=== PATIENT | female | born 1990 | race American Indian/Alaskan Native ===

== ENCOUNTER 2018-05-06 07:58 | Emergency (ER) | payer MEDICAID ==
--- NOTE | 2018-05-06 08:33 | EDM.PDOC ---
ED HPI GENERAL MEDICAL PROBLEM - General Chief Complaint: Genitourinary Problem Stated Complaint: RT SIDE AND STOMACH PAIN Time Seen by Provider: 05/06/18 08:16 Source of Information: Reports: Patient History Limitations: Reports: No Limitations - History of Present Illness INITIAL COMMENTS - FREE TEXT/NARRATIVE: 27 y.o.w.f with a h/o right Ovarian Cyst and vaginal bleed for 4 weeks came to the ed due to pain at her RLQ of her abdomen. No trauma. Pt was temporarily on Prmarin, which helped to regulate her Menstrual Period.No Dysuria, pain rated a 6/10. No N/V/D, pt denied . No other acute medical issues. BP 112/60 Pulse 85 RR 17 Pulse ox 98% on RA Temp 36.7 Onset: Gradual Onset Date: 04/10/18 Onset Time: 08:00 Duration: Day(s):, Intermittent Location: Reports: Abdomen Quality: Reports: Ache, Dull, Pressure, Same as Previous Episode Severity: Moderate Improves with: Reports: Rest Worsens with: Reports: Movement Context: Reports: Other (ovarian cyst) Associated Symptoms: Reports: Other (menstiual period for 4 weeks) Treatments WATER ANALYST: Reports: Acetaminophen Right Lower Abdomen Pain Score (Numeric/FACES): 8 - Related Data Allergies Allergy/AdvReac Type Severity Reaction Status Date / Time No Known Allergies Allergy Verified 12/03/16 15:14 Home Meds: Home Meds Acetaminophen [Tylenol] 650 mg PO Q4H PRN 05/06/18 [History] Acetaminophen/HYDROcodone [Blandon 325-5 MG] 1 tab PO Q4H PRN #6 tab 05/06/18 [Rx] Past Medical History - Past Health History Medical/Surgical History: Denies Medical/Surgical History HEENT History: Reports: Impaired Vision Gastrointestinal History: Reports: Cholelithiasis 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: , Other (See Below) Other OB/BYN History: ovarian cyst - Infectious Disease History Infectious Disease History: Reports: Chicken Pox - Past Surgical History GI Surgical History: Reports: Cholecystectomy Social & Family History - Family History Family Medical History: Noncontributory OBGYN: Reports: Endocrine/Metabolic: Reports: Diabetes, type II - Tobacco Use Smoking Status *Q: Never Smoker - Caffeine Use Caffeine Use: Reports: Soda - Recreational Drug Use Recreational Drug Use: No ED ROS GENERAL - Review of Systems Review Of Systems: See Below Constitutional: Reports: No Symptoms HEENT: Reports: No Symptoms Respiratory: Reports: No Symptoms Cardiovascular: Reports: No Symptoms Endocrine: Reports: No Symptoms GI/Abdominal: Reports: Abdominal Pain (RLQ of abdomen) : Reports: No Symptoms Musculoskeletal: Reports: No Symptoms Skin: Reports: No Symptoms Neurological: Reports: No Symptoms Psychiatric: Reports: No Symptoms Hematologic/Lymphatic: Reports: No Symptoms Immunologic: Reports: No Symptoms ED EXAM, GI/ABD - Physical Exam Exam: See Below Exam Limited By: No Limitations General Appearance: Alert, WD/WN, Mild Distress, Obese Eyes: Bilateral: Normal Appearance Ears: Normal External Exam Nose: Normal Inspection, Normal Mucosa Throat/Mouth: Normal Inspection, Normal Lips, Normal Gums, Normal Voice, No Airway Compromise Head: Atraumatic, Normocephalic Neck: Normal Inspection, Supple, Non-Tender Respiratory/Chest: No Respiratory Distress, Lungs Clear, Normal Breath Sounds, No Accessory Muscle Use, Chest Non-Tender Cardiovascular: Normal Peripheral Pulses, Regular Rate, Rhythm, No Edema, No Gallop, No JVD, No Murmur, No Rub GI/Abdominal Exam: Tender (RLQ of abdomen) (Female) Exam: Deferred Rectal (Female) Exam: Deferred Back Exam: Normal Inspection, Full Range of Motion Extremities: Normal Inspection, Normal Range of Motion, Non-Tender, No Pedal Edema, Normal Capillary Refill Neurological: Alert, Oriented, CN II-XII Intact, Normal Cognition, Normal Gait, No Motor/Sensory Deficits Psychiatric: Normal Affect, Normal Mood Skin Exam: Warm, Dry, Intact, Normal Color, No Rash Lymphatic: No Adenopathy Course - Vital Signs Text/Narrative:: 27 y.o.w.f with a h/o right Ovarian Cyst and vaginal bleed for 4 weeks came to the ed due to pain at her RLQ of her abdomen. No trauma. Pt was temporarily on Prmarin, which helped to regulate her Menstrual Period.No Dysuria, pain rated a 6/10. No N/V/D, pt denied . No other acute medical issues. BP 112/60 Pulse 85 RR 17 Pulse ox 98% on RA Temp 36.7 Labs: UA neg collected through a catheter, HCG Neg H/H 9.5/29.1 WBC nl MCV 79.4 , BMP was nl Ca was 8.5 however. Imaging: US of pelvis: several small ovarian cysts Impression: Right Ovarian Cysts, Menorrhagia, microcytic anemia Tx: Toradol i.m Reexam: Improved Consultation: Dr. Thomas, Pt's PMD: F/U with him in his clinic, no meds to be given now. Plan: D/C with instructions Last Recorded V/S: Last Vital Signs Temp 36.8 C 05/06/18 12:17 Pulse 75 05/06/18 12:50 Resp 16 05/06/18 12:17 BP 106/56 L 05/06/18 12:50 Pulse Ox 100 05/06/18 12:17 - Orders/Labs/Meds Orders: Active Orders 24 hr Category Date Time Status HCG QUALITATIVE,URINE [URCHEM] Stat Lab 05/06/18 08:35 Ordered UA W/MICROSCOPIC [URIN] Stat Lab 05/06/18 08:35 Ordered UA W/MICROSCOPIC [URIN] Stat Lab 05/06/18 09:45 Ordered Labs: Laboratory Tests 05/06/18 05/06/18 05/06/18 Range/Units 08:35 08:35 08:50 WBC 9.4 (4.5-12.0) X10-3/uL RBC 3.67 (3.23-5.20) x10(6)uL Hgb 9.5 L (11.5-15.5) g/dL Hct 29.1 L (30.0-51.3) % MCV 79.4 L (80-96) fL MCH 26.0 L (27.7-33.6) pg MCHC 32.7 (32.2-35.4) g/dL RDW 15.6 H (11.5-15.5) % Plt Count 311 (125-369) X10(3)uL MPV 8.9 (7.4-10.4) fL Neut % (Auto) 78.0 (46-82) % Lymph % (Auto) 14.0 (13-37) % [place] % (Auto) 4.3 (4-12) % Eos % (Auto) 1 (1.0-5.0) % Baso % (Auto) 3 H (0-2) % Neut # (Auto) 7.4 (1.6-8.3) # Lymph # (Auto) 1.3 (0.6-5.0) # [place] # (Auto) 0.4 (0.0-1.3) # Eos # (Auto) 0.1 (0.0-0.8) # Baso # (Auto) 0.2 (0.0-0.2) # Sodium (135-145) mmol/L Potassium (3.5-5.3) mmol/L Chloride (100-110) mmol/L Carbon Dioxide (21-32) mmol/L BUN (7-18) mg/dL Creatinine (0.55-1.02) mg/dL Est Cr Clr Drug Dosing mL/min Estimated GFR (MDRD) (>60) BUN/Creatinine Ratio (9-20) Glucose (80-116) mg/dL Calcium (8.6-10.2) mg/dL Urine Color Yellow (YELLOW) Urine Appearance Slightly cloudy (CLEAR) Urine pH 5.0 (5.0-6.5) Ur Specific University 1.020 (1.010-1.025) Urine Protein Trace (NEGATIVE) mg/dL Urine Glucose (UA) Normal (NEGATIVE) mg/dL Urine Ketones Negative (NEGATIVE) mg/dL Urine Occult Blood Large H (NEGATIVE) Urine Nitrite Negative (NEGATIVE) Urine Bilirubin Small H (NEGATIVE) Urine Urobilinogen 1 H (NEGATIVE) mg/dL Ur Leukocyte Esterase Negative (NEGATIVE) Urine RBC >100 H (0) Urine WBC 0-5 (0) Ur Squamous Epith Cells Few H (NS,R,O) Urine Bacteria Moderate H (NS) Urine HCG, Qual Negative (NEGATIVE) 05/06/18 05/06/18 Range/Units 08:50 09:45 WBC (4.5-12.0) X10-3/uL RBC (3.23-5.20) x10(6)uL Hgb (11.5-15.5) g/dL Hct (30.0-51.3) % MCV (80-96) fL MCH (27.7-33.6) pg MCHC (32.2-35.4) g/dL RDW (11.5-15.5) % Plt Count (125-369) X10(3)uL MPV (7.4-10.4) fL Neut % (Auto) (46-82) % Lymph % (Auto) (13-37) % [place] % (Auto) (4-12) % Eos % (Auto) (1.0-5.0) % Baso % (Auto) (0-2) % Neut # (Auto) (1.6-8.3) # Lymph # (Auto) (0.6-5.0) # [place] # (Auto) (0.0-1.3) # Eos # (Auto) (0.0-0.8) # Baso # (Auto) (0.0-0.2) # Sodium 138 (135-145) mmol/L Potassium 3.8 (3.5-5.3) mmol/L Chloride 103 (100-110) mmol/L Carbon Dioxide 27 (21-32) mmol/L BUN 8 (7-18) mg/dL Creatinine 0.7 (0.55-1.02) mg/dL Est Cr Clr Drug Dosing 104.24 mL/min Estimated GFR (MDRD) > 60 (>60) BUN/Creatinine Ratio 11.4 (9-20) Glucose 92 (80-116) mg/dL Calcium 8.5 L (8.6-10.2) mg/dL Urine Color Yellow (YELLOW) Urine Appearance Clear (CLEAR) Urine pH 6.0 (5.0-6.5) Ur Specific University 1.015 (1.010-1.025) Urine Protein Negative (NEGATIVE) mg/dL Urine Glucose (UA) Normal (NEGATIVE) mg/dL Urine Ketones Negative (NEGATIVE) mg/dL Urine Occult Blood Negative (NEGATIVE) Urine Nitrite Negative (NEGATIVE) Urine Bilirubin Small H (NEGATIVE) Urine Urobilinogen Normal (NEGATIVE) mg/dL Ur Leukocyte Esterase Negative (NEGATIVE) Urine RBC 0-5 (0) Urine WBC 0-5 (0) Ur Squamous Epith Cells Few H (NS,R,O) Urine Bacteria Few H (NS) Urine HCG, Qual (NEGATIVE) Meds: Medications Discontinued Medications Generic Name Dose Route Start Last Admin Trade Name Freq PRN Reason Stop Dose Admin Ketorolac Tromethamine 60 mg 05/06/18 09:48 05/06/18 09:50 Toradol IM 05/06/18 09:49 60 mg ONETIME ONE Administration Ketorolac Tromethamine Confirm 05/06/18 09:49 05/06/18 09:57 Toradol Administered 05/06/18 09:50 Not Given Dose 60 mg .ROUTE .STK-MED ONE Departure - Departure Time of Disposition: 12:46 Disposition: Home, Self-Care 01 Condition: Good Clinical Impression: Menstrual bleeding problem, RLQ abdominal pain Ovarian cyst Qualifiers: Laterality: right Qualified Code(s): N83.201 - Unspecified ovarian cyst, right side - Discharge Information Prescriptions: Acetaminophen/HYDROcodone [Blandon 325-5 MG] 1 tab PO Q4H PRN #6 tab PRN Reason: for severe pain only Instructions: Acetaminophen; Hydrocodone tablets or capsules, Ovarian Cyst, [id number] Referrals: Kota Thomas MD [Primary Care Provider] - Forms: ED Department Discharge Additional Instructions: Please take Motrin for moderate pain, Blandon for severe pain, please f/u with Dr. Thomas, come back to the ed if your symptoms get worse acutely. - My Orders Last 24 Hours: My Active Orders 05/06/18 08:35 HCG QUALITATIVE,URINE [URCHEM] Stat UA W/MICROSCOPIC [URIN] Stat 05/06/18 09:45 UA W/MICROSCOPIC [URIN] Stat - Assessment/Plan Last 24 Hours: My Active Orders 05/06/18 08:35 HCG QUALITATIVE,URINE [URCHEM] Stat UA W/MICROSCOPIC [URIN] Stat 05/06/18 09:45 UA W/MICROSCOPIC [URIN] Stat
[2018-05-06] MEDS: Ketorolac 60 MG/2 ML SDV IM ONE (09:50)
[2018-05-06] MEDS: Ketorolac 60 MG/2 ML SDV ONE (09:57)
[2018-05-06 13:05] VITALS: BP 106/56
--- NOTE | 2018-05-06 13:48 | US ---
INDICATION FOR PELVIC ULTRASOUND: Right lower quadrant abdominal pain. INDICATION FOR TRANSVAGINAL ULTRASOUND: Right lower quadrant abdominal pain/ need better visualization of the uterus and ovaries than was possible with transabdominal probe. PELVIC ULTRASOUND, NON-OB, LIMITED/TRANSVAGINAL ULTRASOUND: Multiple ultrasonic images were obtained with transabdominal and then transvaginal probes for better visualization of the uterus and ovaries, 05/06/2018 - comparison pelvic ultrasound was present. The uterus measured 9.6 x 5.1 x 6.7 cm with a relatively thick endometrial cavity echo of 15.4 mm. This appearance could be on the basis of menstrual cycle but should be correlated clinically. Despite the use of endovaginal probe , the endometrial cavity was not well seen. It may be within normal limits, however. A followup study may be warranted, depending upon clinical course. No definite uterine masses were identified. Probable Nabothian cysts are noted at the cervix. The largest of these measured approximately 10 mm. No adnexal mass lesions or free fluid collections were identified. Right ovary volume was 25.56 mL with measurements of 4.5 x 3.1 x 3.5 cm. Left ovary volume was 7.94 mL with measurements of 2.1 x 3.8 x 1.9 cm. The right ovary showed multiple cystic structures, including follicles and probable follicular cysts, the largest of which measured 29 x 26 x 16 mm. A second follicular cyst measured approximately 22 mm maximally. These probable follicular cysts are somewhat irregular and are difficult to determine their nature definitively. Thickening of the wall of the largest of the cysts is difficult to exclude; therefore, followup transvaginal pelvic ultrasound is recommended in 2 or 6 weeks to confirm involution of these probable follicular cysts and to exclude the possibility of neoplastic cystic mass. The left ovary showed evidence of a few follicles, the largest measuring approximately 14 mm. It was otherwise unremarkable. IMPRESSION: 1. Prominent endometrial cavity echo with relatively poor definition, despite use of endovaginal probe. Findings should be correlated clinically. Additional followup study may be warranted, depending upon clinical course and clinical correlation. The possibility of endometrial pathology cannot be entirely excluded. 2. Probable follicular cysts at the right ovary. Followup study in 2 or 6 weeks recommended to confirm involution. Report was called to Dr. Galo at 1236 hours. [facility]
== END 2018-05-06 12:58 | disposition home or self-care (01) ==
LOC: FB.ED 07:58
DX: N83.201 Unspecified ovarian cyst, right side (principal); N92.0 Excessive and frequent menstruation with regular cycle; D50.9 Iron deficiency anemia, unspecified
CPT/HCPCS: 36415; 76830; 76857; 80048; 81001; 81025; 85025; 96372; 99284; J1885

== ENCOUNTER 2018-07-28 13:04 | Emergency (ER) | payer BC, MEDICAID ==
[2018-07-28] MEDS ORDERED: Ibuprofen 600 MG Tab PO ONE (13:15)
--- NOTE | 2018-07-28 13:19 | EDM.PDOC ---
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 Tetanus is UTD. 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 ED EXAM, GENERAL - Physical Exam Exam: See Below Exam Limited By: No Limitations General Appearance: Alert, WD/WN, No Apparent Distress Throat/Mouth: No Airway Compromise Head: Atraumatic, Normocephalic Respiratory/Chest: No Respiratory Distress Peripheral Pulses: 2+: Dorsalis Pedis (R) Back Exam: Full Range of Motion Extremities: Other (right 3rd toe tenderness, tiny amount of blood present tip of toe) Neurological: Alert, No Motor/Sensory Deficits Skin Exam: Warm, Dry Course - Vital Signs Last Recorded V/S: Last Vital Signs Temp 36.8 C 07/28/18 13:15 Pulse Resp 17 07/28/18 13:15 BP 116/61 07/28/18 13:15 Pulse Ox 99 07/28/18 13:15 - Orders/Labs/Meds Orders: Active Orders 24 hr Category Date Time Status Toes Third Digit Rt T7 [CR] Stat Exams 07/28/18 13:14 Taken Meds: Medications Discontinued Medications Generic Name Dose Route Start Last Admin Trade Name Linsey PRN Reason Stop Dose Admin Ibuprofen 600 mg 07/28/18 13:15 07/28/18 13:42 Motrin PO 07/28/18 13:16 600 mg ONETIME ONE Administration - Radiology Interpretation Free Text/Narrative:: Right 3rd Toe XR: chip fracture base of distal phalanx - Re-Assessments/Exams Free Text/Narrative Re-Assessment/Exam: 07/28/18 14:07 Right 2nd and 3rd toes jeni taped, foot placed in post-op shoe. Patient discharged with crutches. Departure - Departure Time of Disposition: 14:08 Disposition: Home, Self-Care 01 Clinical Impression: Toe fracture, right Qualifiers: Encounter type: initial encounter Toe: lesser toe Fracture type: closed Phalanx : distal Fracture alignment: displaced Qualified Code(s): S92.531A - Displaced fracture of distal phalanx of right lesser toe(s), initial encounter for closed fracture - Discharge Information *PRESCRIPTION DRUG MONITORING PROGRAM REVIEWED*: No *COPY OF PRESCRIPTION DRUG MONITORING REPORT IN PATIENT TAMMIE: Not Applicable Instructions: Toe Fracture, [id number], Crutch Use, Adult, [id number], How to Jeni Tape Referrals: Kota Thomas MD [Primary Care Provider] - Forms: ED Department Discharge, ED Return to Work/School Form Additional Instructions: Take Ibuprofen as needed, elevate the foot, weight bear as tolerated, follow up if symptoms don't improve in 1 week. - My Orders Last 24 Hours: My Active Orders 07/28/18 13:14 Toes Third Digit Rt T7 [CR] Stat - Assessment/Plan Last 24 Hours: My Active Orders 07/28/18 13:14 Toes Third Digit Rt T7 [CR] Stat
[2018-07-28 13:31] VITALS: BP 116/61
== END 2018-07-28 14:32 | disposition home or self-care (01) ==
LOC: FB.ED 13:04
DX: S92.531A Displaced fracture of distal phalanx of right lesser toe(s), initial encounter for closed fracture (principal); W22.8XXA Striking against or struck by other objects, initial encounter
CPT/HCPCS: 73660-T7; 99283; A9270-GY

== ENCOUNTER 2020-05-01 11:31 | Emergency (ER) | payer SELFPAY ==
[2020-05-01] MEDS ORDERED: traMADol 50 MG Tab PO ONE (13:30)
--- NOTE | 2020-05-01 13:36 | EDM.PDOC ---
ED HPI GENERAL MEDICAL PROBLEM - General Chief Complaint: Lower Extremity Injury/Pain Stated Complaint: PAIN IN RIGHT LEG Time Seen by Provider: 05/01/20 13:30 Source of Information: Reports: Patient History Limitations: Reports: No Limitations - History of Present Illness INITIAL COMMENTS - FREE TEXT/NARRATIVE: Patient presents with acute on chronic right lower leg pain. She has had daily pain in the right lower leg since 2013, unknown etiology. At times the pain flares. Patient complains of increased pain x 3 days not controlled with Tylenol or Ibuprofen. Denies injury. No other complaints. Duration: Day(s): (3) Location: Reports: Lower Extremity, Right Quality: Reports: Ache Severity: Moderate Treatments SUPERVISOR QUALITY CONTROL: Reports: Acetaminophen, NSAIDS right calf Pain Score (Numeric/FACES): 10 - Related Data Allergies Allergy/AdvReac Type Severity Reaction Status Date / Time No Known Allergies Allergy Verified 05/01/20 12:36 Home Meds: Home Meds Acetaminophen [Tylenol] 650 mg PO Q4H PRN 05/06/18 [History] traMADol [Ultram] 50 - 100 mg PO Q6H PRN #30 tab 05/01/20 [Rx] Past Medical History HEENT History: Reports: Impaired Vision Gastrointestinal History: Reports: Cholelithiasis 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: , Other (See Below) Other OFFSET MACHINE OPERATOR History: ovarian cyst Musculoskeletal History: Reports: Other (See Below) (chronic RLE pain) - Infectious Disease History Infectious Disease History: Reports: Chicken Pox - Past Surgical History GI Surgical History: Reports: Cholecystectomy Social & Family History - Family History Family Medical History: Noncontributory OBGYN: Reports: Endocrine/Metabolic: Reports: Diabetes, type II - Tobacco Use Smoking Status *Q: Never Smoker Second Hand Smoke Exposure: No - Caffeine Use Caffeine Use: Reports: Soda - Recreational Drug Use Recreational Drug Use: No Review of Systems - Review of Systems Review Of Systems: Comprehensive ROS is negative, except as noted in HPI. ED EXAM, GENERAL - Physical Exam Exam: See Below Exam Limited By: No Limitations General Appearance: Alert, WD/WN, No Apparent Distress Nose: Normal Inspection Throat/Mouth: No Airway Compromise Head: Atraumatic, Normocephalic Respiratory/Chest: No Respiratory Distress Peripheral Pulses: 2+: Dorsalis Pedis (R) Extremities: No Pedal Edema, Other (tenderness to right posterior lower leg, no leg swelling, no deformity) Neurological: Alert, Oriented, Normal Cognition, No Motor/Sensory Deficits Psychiatric: Normal Affect, Normal Mood Course - Vital Signs Last Recorded V/S: Last Vital Signs Temp 37.1 C 05/01/20 12:20 Pulse 96 05/01/20 12:20 Resp 17 05/01/20 12:20 BP 107/71 05/01/20 12:20 Pulse Ox 98 05/01/20 12:20 - Orders/Labs/Meds Orders: Active Orders 24 hr Category Date Time Status traMADol [Ultram] Med 05/01/20 13:30 Once 100 mg PO ONETIME ONE Departure - Departure Time of Disposition: 13:34 Disposition: Home, Self-Care 01 Condition: Good Clinical Impression: Pain in right lower leg - Discharge Information *PRESCRIPTION DRUG MONITORING PROGRAM REVIEWED*: Yes *COPY OF PRESCRIPTION DRUG MONITORING REPORT IN PATIENT TAMMIE: Not Applicable Prescriptions: traMADol [Ultram] 50 - 100 mg PO Q6H PRN #30 tab PRN Reason: Pain Instructions: Musculoskeletal Pain Referrals: Kota Thomas MD [Primary Care Provider] - 05/01/20 4:15 pm Additional Instructions: Fill the prescription for Tramadol and take as directed. You may also take Tylenol or Ibuprofen as needed. Rest, elevate the leg. Keep your appt with Dr. Thomas today. Sepsis Event Note (ED) - Evaluation Sepsis Screening Result: No Definite Risk - Focused Exam Vital Signs: Vital Signs Temp Pulse Resp BP Pulse Ox 05/01/20 12:20 37.1 C 96 17 107/71 98 - My Orders Last 24 Hours: My Active Orders 05/01/20 13:30 traMADol [Ultram] 100 mg PO ONETIME ONE - Assessment/Plan Last 24 Hours: My Active Orders 05/01/20 13:30 traMADol [Ultram] 100 mg PO ONETIME ONE
[2020-05-01 15:27] VITALS: BP 139/77; PULSE 86
== END 2020-05-01 14:15 | disposition home or self-care (01) ==
LOC: FB.ED 11:31
DX: M79.661 Pain in right lower leg (principal)
CPT/HCPCS: 99283; A9270

== ENCOUNTER 2020-06-28 13:20 | Emergency (ER) | payer MEDICAID ==
[2020-06-28] MEDS ORDERED: Ondansetron 4 MG/2 ML SDV IVPUSH ONE (13:39)
[2020-06-28] MEDS ORDERED: Sodium Chloride 0.9% 1,000 ML IV ONE (13:39)
--- NOTE | 2020-06-28 13:48 | EDM.PDOC ---
ED HPI GENERAL MEDICAL PROBLEM - General Chief Complaint: Abdominal Pain Stated Complaint: PAIN L SIDE ABD Time Seen by Provider: 06/28/20 13:30 Source of Information: Reports: Patient History Limitations: Reports: No Limitations - History of Present Illness INITIAL COMMENTS - FREE TEXT/NARRATIVE: states she woke this am with pain in the LLQ. 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 Left Lower Abdominal Pain Score (Numeric/FACES): 3 - Related Data Allergies Allergy/AdvReac Type Severity Reaction Status Date / Time No Known Allergies Allergy Verified 06/28/20 13:24 Home Meds: Home Meds Acetaminophen [Tylenol] 650 mg PO Q4H PRN 05/06/18 [History] traMADol [Ultram] 50 - 100 mg PO Q6H PRN #30 tab 05/01/20 [Rx] Ciprofloxacin [Cipro XR] 500 mg PO BID #20 tab.er 06/28/20 [Rx] Gabapentin [Neurontin] 300 mg PO BID #60 cap 06/28/20 [Rx] Ondansetron [Zofran ODT] 4 mg PO Q6H PRN #20 tab.dis 06/28/20 [Rx] metroNIDAZOLE [Metronidazole] 500 mg PO BID #20 tablet 06/28/20 [Rx] Past Medical History HEENT History: Reports: Impaired Vision Gastrointestinal History: Reports: Cholelithiasis 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: , 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 (See Below) Other 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: ovarian cyst Musculoskeletal History: Reports: Other (See Below) (chronic RLE pain) - Infectious Disease History Infectious Disease History: Reports: Chicken Pox - Past Surgical History GI Surgical History: Reports: Cholecystectomy Social & Family History - Family History Family Medical History: Noncontributory OBGYN: Reports: Endocrine/Metabolic: Reports: Diabetes, type II - Caffeine Use Caffeine Use: Reports: Soda ED ROS GENERAL - Review of Systems Review Of Systems: See Below Constitutional: Reports: Weakness, Decreased Appetite HEENT: Reports: No Symptoms Respiratory: Reports: No Symptoms Cardiovascular: Reports: No Symptoms Endocrine: Reports: No Symptoms : Reports: Flank Pain, Pain Musculoskeletal: Reports: No Symptoms Skin: Reports: No Symptoms Neurological: Reports: No Symptoms Psychiatric: Reports: Anxiety Hematologic/Lymphatic: Reports: No Symptoms Immunologic: Reports: No Symptoms ED EXAM, GI/ABD - Physical Exam Exam: See Below Exam Limited By: No Limitations General Appearance: Alert, Mild Distress, Other (in obvious pain ) Eyes: Bilateral: EOMI Ears: Normal External Exam Nose: Normal Inspection Throat/Mouth: Normal Inspection, Normal Lips Head: Atraumatic, Normocephalic Neck: Normal Inspection, Supple, Non-Tender Respiratory/Chest: No Respiratory Distress, Lungs Clear, Normal Breath Sounds, Chest Non-Tender Cardiovascular: Normal Peripheral Pulses, Regular Rate, Rhythm GI/Abdominal Exam: Soft, Distended, Tender (LLQ), Abnormal Bowel Sounds (hypoactive BS). No: Guarding, Rigid Back Exam: Normal Inspection, Full Range of Motion Extremities: Normal Inspection, Normal Range of Motion Neurological: Alert, Oriented, CN II-XII Intact, Normal Cognition Psychiatric: Anxious Skin Exam: Warm, Dry, Intact Lymphatic: No Adenopathy Course - Vital Signs Last Recorded V/S: Last Vital Signs Temp 36.7 C 06/28/20 13:20 Pulse 95 06/28/20 13:20 Resp 17 06/28/20 13:20 BP 132/87 06/28/20 13:20 Pulse Ox 100 06/28/20 13:20 - Orders/Labs/Meds Orders: Active Orders 24 hr Category Date Time Status CULTURE URINE [RM] Stat Lab 06/28/20 13:38 Results Labs: Laboratory Tests 06/28/20 06/28/20 06/28/20 Range/Units 13:48 13:48 15:05 WBC 10.1 (4.5-12.0) X10-3/uL RBC 4.47 (3.23-5.20) x10(6)uL Hgb 11.8 (11.5-15.5) g/dL Hct 38.2 (30.0-51.3) % MCV 85.5 (80-96) fL MCH 26.4 L (27.7-33.6) pg MCHC 30.9 L (32.2-35.4) g/dL RDW 13.9 (11.5-15.5) % Plt Count 314 (125-369) X10(3)uL Sodium (135-145) mmol/L Potassium (3.5-5.3) mmol/L Chloride (100-110) mmol/L Carbon Dioxide (21-32) mmol/L BUN (7-18) mg/dL Creatinine (0.55-1.02) mg/dL Est Cr Clr Drug Dosing mL/min Estimated GFR (MDRD) (>60) BUN/Creatinine Ratio (9-20) Glucose (80-116) mg/dL Calcium (8.6-10.2) mg/dL Total Bilirubin (0.1-1.3) mg/dL AST (5-25) IU/L ALT (12-36) U/L Alkaline Phosphatase (56-112) IU/L C-Reactive Protein (0.5-0.9) mg/dL Total Protein (6.0-8.0) g/dL Albumin (3.5-5.2) g/dL Globulin g/dL Albumin/Globulin Ratio Urine Color Yellow (YELLOW) Urine Appearance Cloudy (CLEAR) Urine pH 6.0 (5.0-6.5) Ur Specific [place] 1.010 (1.010-1.025) Urine Protein 30 H (NEGATIVE) mg/dL Urine Glucose (UA) Normal (NORMAL) mg/dL Urine Ketones Negative (NEGATIVE) mg/dL Urine Occult Blood Large H (NEGATIVE) Urine Nitrite Negative (NEGATIVE) Urine Bilirubin Negative (NEGATIVE) Urine Urobilinogen Normal (NEGATIVE) mg/dL Ur Leukocyte Esterase Large H (NEGATIVE) Urine WBC Packed H (0-5) Urine HCG, Qual Negative (NEGATIVE) 06/28/20 06/28/20 Range/Units 15:05 15:05 WBC (4.5-12.0) X10-3/uL RBC (3.23-5.20) x10(6)uL Hgb (11.5-15.5) g/dL Hct (30.0-51.3) % MCV (80-96) fL MCH (27.7-33.6) pg MCHC (32.2-35.4) g/dL RDW (11.5-15.5) % Plt Count (125-369) X10(3)uL Sodium 141 (135-145) mmol/L Potassium 3.9 (3.5-5.3) mmol/L Chloride 106 (100-110) mmol/L Carbon Dioxide 26 (21-32) mmol/L BUN 10 (7-18) mg/dL Creatinine 0.9 (0.55-1.02) mg/dL Est Cr Clr Drug Dosing 79.64 mL/min Estimated GFR (MDRD) > 60 (>60) BUN/Creatinine Ratio 11.1 (9-20) Glucose 122 H (80-116) mg/dL Calcium 7.9 L (8.6-10.2) mg/dL Total Bilirubin 0.2 (0.1-1.3) mg/dL AST 17 (5-25) IU/L ALT 26 (12-36) U/L Alkaline Phosphatase 141 H (56-112) IU/L C-Reactive Protein 1.3 H (0.5-0.9) mg/dL Total Protein 7.0 (6.0-8.0) g/dL Albumin 3.2 L (3.5-5.2) g/dL Globulin 3.8 g/dL Albumin/Globulin Ratio 0.8 Urine Color (YELLOW) Urine Appearance (CLEAR) Urine pH (5.0-6.5) Ur Specific [place] (1.010-1.025) Urine Protein (NEGATIVE) mg/dL Urine Glucose (UA) (NORMAL) mg/dL Urine Ketones (NEGATIVE) mg/dL Urine Occult Blood (NEGATIVE) Urine Nitrite (NEGATIVE) Urine Bilirubin (NEGATIVE) Urine Urobilinogen (NEGATIVE) mg/dL Ur Leukocyte Esterase (NEGATIVE) Urine WBC (0-5) Urine HCG, Qual (NEGATIVE) Meds: Medications Discontinued Medications Generic Name Dose Route Start Last Admin Trade Name Freq PRN Reason Stop Dose Admin Ceftriaxone Sodium 1 gm 06/28/20 14:45 06/28/20 14:40 Rocephin IVPUSH 06/28/20 14:46 1 gm ONETIME ONE Administration Sodium Chloride 1,000 mls @ 999 mls/hr 06/28/20 13:39 06/28/20 13:56 Normal Saline IV 06/28/20 14:39 999 mls/hr .BOLUS ONE Administration Ketorolac Tromethamine 30 mg 06/28/20 13:52 06/28/20 14:00 Toradol IVPUSH 06/28/20 13:53 30 mg ONETIME ONE Administration Ondansetron HCl 8 mg 06/28/20 13:39 06/28/20 14:07 Zofran IVPUSH 06/28/20 13:40 8 mg ONETIME ONE Administration - Re-Assessments/Exams Free Text/Narrative Re-Assessment/Exam: 06/28/20 15:[address] of the abd done : suggestive of colitis ans UTI ( bladder thickening) Pt felt better after IVF and antibiotics Departure - Departure Time of Disposition: 16:45 Disposition: Home, Self-Care 01 Clinical Impression: UTI (urinary tract infection), LLQ abdominal pain, Colitis presumed infectious, Neuropathy of both feet - Discharge Information *PRESCRIPTION DRUG MONITORING PROGRAM REVIEWED*: Not Applicable *COPY OF PRESCRIPTION DRUG MONITORING REPORT IN PATIENT TAMMIE: Not Applicable Prescriptions: Ciprofloxacin [Cipro XR] 500 mg PO BID #20 tab.er metroNIDAZOLE [Metronidazole] 500 mg PO BID #20 tablet Gabapentin [Neurontin] 300 mg PO BID #60 cap Ondansetron [Zofran ODT] 4 mg PO Q6H PRN #20 tab.dis PRN Reason: Nausea/Vomiting Instructions: Urinary Tract Infection, Adult, [id number], Flank Pain, Adult, [id number], Colitis Referrals: Kota Thomas MD [Primary Care Provider] - Forms: ED Department Discharge - My Orders Last 24 Hours: My Active Orders 06/28/20 13:38 CULTURE URINE [RM] Stat - Assessment/Plan Last 24 Hours: My Active Orders 06/28/20 13:38 CULTURE URINE [RM] Stat
[2020-06-28] MEDS ORDERED: Ketorolac 30 MG/ML SDV IVPUSH ONE (13:52)
[2020-06-28] MEDS ORDERED: cefTRIAXone 1 GM in Sodium Chloride 0.9% 50 ML IV ONE (14:21)
[2020-06-28 14:28] VITALS: BP 132/87; PULSE 95
[2020-06-28] MEDS ORDERED: cefTRIAXone 1 GM Vial IVPUSH ONE (14:45)
--- NOTE | 2020-06-28 17:03 | CT ---
INDICATION: Left lower quadrant abdominal pain. CT ABDOMEN AND PELVIS WITHOUT CONTRAST: Spiral 2.5 mm axial sections were obtained through the abdomen and pelvis with sagittal and coronal reconstructions 06/28/20 and compared with pelvic ultrasound of 05/06/18. Total exam DLP was 1812.04 mGy-cm. The lower lung peck and pleural spaces visualized appeared normal. The heart is normal in size. No pericardial effusion was seen. Clips compatible with cholecystectomy are noted. The liver, spleen, adrenal glands, and pancreas appeared normal. Common bile duct was normal in caliber at the head of the pancreas. No definite calculi were noted within the kidney on the left. A tiny calculus is suggested in the calyx in the midpole of the right kidney - nonobstructive - no definite obstructive uropathy was seen on either side. However, the renal pelvis on the left was more prominent than the right and additionally the left ureter was more prominent than the right ureter. No evidence of ureteral calculus to strongly suggest obstructive uropathy at the distal left ureter is identified. The possibility of a recently passed calculus would be a consideration. Urinary bladder is almost empty, which may be at least partly responsible for the appearance of a thickened wall. This could be on the basis of cystis but should be correlated clinically. The appendix appeared normal visualized on coronal images 60 to 66 and axial images 108 through 127. No free air or bowel obstruction was identified. There is question of some thickening of the wall of the sigmoid colon with some minimal pericolonic fat stranding. A process such as colitis would be a consideration in that area - no definite diverticula seen. The bowel loops were otherwise unremarkable. No retroperitoneal mass was seen. Retroperitoneal lymphadenopathy is noted, which is nonspecific. No additional organomegaly, mass lesions of significance, or free fluid collections were identified in the abdomen or pelvis. There appear to be follicles in both ovaries. IMPRESSION: 1. No definite evidence of obstructive uropathy is seen on the left. However, the left pyelocaliceal system and ureter are slightly more prominent than the right, raising suspicion of a recently passed calculus. This should be correlated clinically. Dependent upon clinical necessity, additional examination with CT with IV contrast and CT urogram may be helpful. 2. Thickening of the urinary bladder wall may be present, raising question of cystitis. 3. Follicles are noted in both ovaries. 4. Normal appearing appendix. 5. Single calculus of tiny size midpole right kidney. No renal calcinosis otherwise. 6. Post cholecystectomy. 7. There is an appearance suggesting thickening of the wall of the sigmoid colon with some very minimal pericolonic fat stranding - indistinctness at the pericolonic fat locally in that area of the anterior left mid pelvis. This should be correlated clinically. Colitis could be present. Report was called to Dr. Casarez at [address] [facility]
== END 2020-06-28 16:15 | disposition home or self-care (01) ==
LOC: FB.ED 13:20
DX: K52.9 Noninfective gastroenteritis and colitis, unspecified (principal); N39.0 Urinary tract infection, site not specified; G62.9 Polyneuropathy, unspecified; Z79.899 Other long term (current) drug therapy
CPT/HCPCS: 36415; 74176; 80053; 81001; 81025; 85027; 86140; 87086; 87088; 87186; 96361; 96374; 96375; 99284; J0696; J1885; J2405; J7030

== ENCOUNTER 2022-04-17 03:28 | Emergency (ER) | payer MEDICAID ==
[2022-04-17] MEDS ORDERED: Ketorolac 30 MG/ML SDV IM ONE (03:55)
[2022-04-17] MEDS ORDERED: Acetaminophen/oxyCODONE 325-5 MG Tab PO PRN (03:55)
[2022-04-17 04:20] VITALS: BP 132/59; PULSE 113
[2022-04-17] MEDS ORDERED: hydrOXYzine HCl 50 MG/ML SDV IM STA (04:33)
[2022-04-17] MEDS ORDERED: OLANZapine 10 MG Vial IM STA (04:33)
== END 2022-04-17 05:32 | disposition home or self-care (01) ==
LOC: FB.ED 03:28
DX: L28.0 Lichen simplex chronicus (principal); Z79.899 Other long term (current) drug therapy; Z90.49 Acquired absence of other specified parts of digestive tract
CPT/HCPCS: 96372; 99283; A9270-GY; J1885; J3410; J3490

== ENCOUNTER 2024-09-23 03:36 | Emergency (ER) | payer MEDICAID ==
[2024-09-23 04:14] VITALS: BP 126/66; PULSE 111
[2024-09-23 04:45] LABS: HEMOGLOBIN 8.7 g/dL (11.4-15.5)
[2024-09-23 06:34] LABS: HCG QUANTITATIVE 78945 mIU/mL (<5)
== END 2024-09-23 04:32 | disposition home or self-care (01) ==
LOC: FB.ED 03:36
DX: O99.011 Anemia complicating pregnancy, first trimester (principal); D50.0 Iron deficiency anemia secondary to blood loss (chronic); Z3A.13 13 weeks gestation of pregnancy; Z90.49 Acquired absence of other specified parts of digestive tract; Z79.899 Other long term (current) drug therapy
CPT/HCPCS: 36415; 84702; 85018; 99284